=== PATIENT | female | born 1995 | race Caucasian/White ===

== ENCOUNTER 2019-10-02 20:31 | Emergency (ER) | payer BC ==
[2019-10-02] MEDS ORDERED: Nitrofurantoin Monohydrate/Macrocrystalline 100 MG Cap PO ONE (20:32)
[2019-10-02] MEDS ORDERED: Phenazopyridine 95 MG Tab PO ONE (20:32)
--- NOTE | 2019-10-02 20:35 | EDM.PDOC ---
ED HPI GENERAL MEDICAL PROBLEM - General Chief Complaint: Genitourinary Problem Stated Complaint: uti? Time Seen by Provider: 10/02/19 20:31 Source of Information: Reports: Patient History Limitations: Reports: No Limitations - History of Present Illness INITIAL COMMENTS - FREE TEXT/NARRATIVE: Patient to the emergency department complaining of increased urination and frequency as well as urinary burning for the past few days. The patient has no fever chills no abdominal pain no nausea vomiting diarrhea no constipation no rash no back pain no flank pain Onset: Gradual Duration: Day(s): Quality: Reports: Burning Severity: Mild Improves with: Reports: None Worsens with: Reports: Other (Voiding) Associated Symptoms: Denies: Cough, Fever/Chills, Nausea/Vomiting Treatments [employer]: Reports: Other (see below) (none) Lower Back Pain Score (Numeric/FACES): 3 - Related Data Allergies Allergy/AdvReac Type Severity Reaction Status Date / Time Penicillins Allergy Cannot Verified 10/02/19 21:05 Remember Sulfa (Sulfonamide Allergy Cannot Verified 10/02/19 21:05 Antibiotics) Remember Home Meds: Home Meds Desogestrel-Ethinyl Estradiol [Isibloom 28 Day Tablet] 1 tab PO DAILY 10/02/19 [ History] Nitrofurantoin Monohyd/M-Cryst [Macrobid 100 mg Capsule] 100 mg PO BID 9 Days # 18 capsule 10/02/19 [Rx] Phenazopyridine [Pyridium] 100 mg PO TID 1 Days #3 tab 10/02/19 [Rx] Past Medical History - Past Health History Medical/Surgical History: Denies Medical/Surgical History Social & Family History - Family History Cardiac: Reports: Hypertension - Tobacco Use Tobacco Use Within Last Twelve Months: No - Alcohol Use Alcohol Use in Last Twelve Months: No - Living Situation & Occupation Living situation: Reports: Single, with Family ED ROS GENERAL - Review of Systems Review Of Systems: See Below Constitutional: Reports: No Symptoms. Denies: Fever, Chills HEENT: Reports: No Symptoms Respiratory: Reports: No Symptoms Cardiovascular: Reports: No Symptoms. Denies: Chest Pain GI/Abdominal: Denies: Abdominal Pain, Nausea, Vomiting : Reports: Frequency, Pain, Urgency. Denies: Discharge, Dysuria, Flank Pain, Hematuria, Urinary Retention Musculoskeletal: Reports: No Symptoms. Denies: Back Pain Skin: Reports: No Symptoms Neurological: Reports: No Symptoms Psychiatric: Reports: No Symptoms ED EXAM, RENAL/ - Physical Exam Exam: See Below Exam Limited By: No Limitations General Appearance: Alert, WD/WN, No Apparent Distress Ears: Normal External Exam Nose: Normal Inspection Throat/Mouth: Normal Inspection, Normal Lips, Normal Voice, No Airway Compromise Head: Atraumatic, Normocephalic Neck: Normal Inspection, Supple, Non-Tender, Full Range of Motion Respiratory/Chest: No Respiratory Distress, Lungs Clear, Normal Breath Sounds, Chest Non-Tender Cardiovascular: Normal Peripheral Pulses, Regular Rate, Rhythm, No Murmur GI/Abdominal: Normal Bowel Sounds, Soft, Non-Tender Back Exam: Normal Inspection, Full Range of Motion. No: CVA Tenderness (L), CVA Tenderness (R) Extremities: Normal Inspection, Normal Range of Motion, Non-Tender, Normal Capillary Refill Neurological: Alert, Oriented, Normal Cognition, Normal Gait, No Motor/Sensory Deficits Psychiatric: Normal Affect, Normal Mood Skin Exam: Warm, Dry, Intact, Normal Color Course - Vital Signs Text/Narrative:: The patient was evaluated in the emergency department a urinalysis was obtained and does show UTI. The patient will be given Macrobid 100 mg p.o. now and 100 mg p.o. every 12 hours should be given a dose for tomorrow and then a prescription will be sent to her pharmacy. The patient will also be given Pyridium 100 mg 3 times daily for 2 days she will be given a dose tonight as well as dosing for tomorrow and a prescription for Friday. The patient is advised to increase her fluids she is to follow-up for repeat urinalysis in 7 to 10 days she is to return to emergency department sooner if worse or any problems Last Recorded V/S: Last Vital Signs Temp 37.4 C 10/02/19 20:31 Pulse 81 10/02/19 20:31 Resp 16 10/02/19 20:31 BP 157/69 H 10/02/19 20:31 Pulse Ox 100 10/02/19 20:31 - Orders/Labs/Meds Orders: Active Orders 24 hr Category Date Time Status Nitrofurantoin Cidra/Macrocryst [Macrobid] Med 10/03/19 21:28 Once 100 mg PO ONETIME ONE Phenazopyridine [Take Home: Phenazopyridine, 4 Tab Pack Med 10/02/19 21:28 Once ] 1 packet .XX ONETIME ONE Phenazopyridine [Urinary Pain Relief] Med 10/03/19 08:30 Ordered 95 mg PO TIDPC Medication Orders Nitrofurantoin Macrocrystals (Macrobid) 100 mg PO ONETIME ONE Stop: 10/03/19 21:29 Phenazopyridine HCl (Urinary Pain Relief) 95 mg PO TIDPC [facility] Labs: Laboratory Tests 10/02/19 Range/Units 21:10 Urine Color Yellow (YELLOW) Urine Appearance Cloudy (CLEAR) Urine pH 6.5 (4.5-8.0) Ur Specific [place] >= 1.030 H (1.003-1.020) Urine Protein 100 H (NEGATIVE) mg/dL Urine Glucose (UA) Negative (NEGATIVE) mg/dL Urine Ketones Trace H (NEGATIVE) mg/dL Urine Occult Blood Large H (NEGATIVE) Urine Nitrite Negative (NEGATIVE) Urine Bilirubin Negative (NEGATIVE) Urine Urobilinogen 0.2 (0.2-1.0) EU/dL Ur Leukocyte Esterase Moderate H (NEGATIVE) Urine RBC 50-75 H (0-5) /HPF Urine WBC >100 H (0-5) /HPF Ur Epithelial Cells Moderate H (NOT SEEN) /HPF Urine Bacteria Few H (NOT SEEN) /HPF Urinalysis Comment See note Meds: Medications Generic Name Dose Route Start Last Admin Trade Name Freq PRN Reason Stop Dose Admin Nitrofurantoin Macrocrystals 100 mg 10/03/19 21:28 Macrobid PO 10/03/19 21:29 ONETIME ONE Phenazopyridine HCl 95 mg 10/03/19 08:30 Urinary Pain Relief PO TIDPC TALITA Discontinued Medications Generic Name Dose Route Start Last Admin Trade Name Freq PRN Reason Stop Dose Admin Nitrofurantoin Macrocrystals 1 packet 10/02/19 21:27 Take Home: Nitrofur Cidra/Ma 100 Mg, 2 Pack PO 10/02/19 21:28 ONETIME ONE Departure - Departure Time of Disposition: 21:29 Disposition: Home, Self-Care 01 Condition: Good Clinical Impression: UTI, Urinary tract infectious disease - Discharge Information *PRESCRIPTION DRUG MONITORING PROGRAM REVIEWED*: Not Applicable *COPY OF PRESCRIPTION DRUG MONITORING REPORT IN PATIENT SUMAYA: Not Applicable Prescriptions: Nitrofurantoin Monohyd/M-Cryst [Macrobid 100 mg Capsule] 100 mg PO BID 9 Days # 18 capsule Phenazopyridine [Pyridium] 100 mg PO TID 1 Days #3 tab Forms: ED Department Discharge Sepsis Event Note - Focused Exam Vital Signs: Vital Signs Temp Pulse Resp BP Pulse Ox 10/02/19 20:31 37.4 C 81 16 157/69 H 100 Date Exam was Performed: 10/02/19 Time Exam was Performed: 21:28 - Problem List & Annotations (1) UTI, Urinary tract infectious disease SNOMED Code(s): 79810984 Code(s): N39.0 - URINARY TRACT INFECTION, SITE NOT SPECIFIED Status: Acute Priority: Medium - Problem List Review Problem List Initiated/Reviewed/Updated: Yes - My Orders Last 24 Hours: My Active Orders 10/02/19 21:28 Phenazopyridine [Take Home: Phenazopyridine, 4 Tab Pack] 1 packet .XX ONETIME ONE 10/03/19 08:30 Phenazopyridine [Urinary Pain Relief] 95 mg PO TIDPC 10/03/19 21:28 Nitrofurantoin Cidra/Macrocryst [Macrobid] 100 mg PO ONETIME ONE - Assessment/Plan Last 24 Hours: My Active Orders 10/02/19 21:28 Phenazopyridine [Take Home: Phenazopyridine, 4 Tab Pack] 1 packet .XX ONETIME ONE 10/03/19 08:30 Phenazopyridine [Urinary Pain Relief] 95 mg PO TIDPC 10/03/19 21:28 Nitrofurantoin Cidra/Macrocryst [Macrobid] 100 mg PO ONETIME ONE Plan: as above
[2019-10-02] MEDS ORDERED: Phenazopyridine 95 MG Tab ONE (21:20)
[2019-10-02] MEDS ORDERED: Nitrofurantoin Monohydrate/Macrocrystalline 100 MG Cap ONE (21:20)
[2019-10-02] MEDS ORDERED: Take Home: Nitrofurantoin Monohydrate/Macrocrystalline 100 MG, 2 Cap Pack PO ONE (21:27)
[2019-10-02] MEDS ORDERED: Take Home: Phenazopyridine 95 MG Tab, 4 Tab Pack ONE (21:28)
[2019-10-03] MEDS ORDERED: Phenazopyridine 95 MG Tab PO SCH (08:30)
[2019-10-03] MEDS ORDERED: Nitrofurantoin Monohydrate/Macrocrystalline 100 MG Cap PO ONE (21:28)
== END 2019-10-02 21:40 | disposition home or self-care (01) ==
LOC: CC.ED 20:31
DX: N39.0 Urinary tract infection, site not specified (principal); Z88.0 Allergy status to penicillin; Z88.2 Allergy status to sulfonamides
CPT/HCPCS: 81001; 87086; 87088; 87186; 99283; A9270-GY